=== PATIENT | male | born 1935 | race Caucasian/White ===

== ENCOUNTER 2020-03-02 11:00 | Emergency (ER) | payer OTHER ==
[~2020-03-02] VITALS: Ht 182.9 cm; Wt 92.1 kg
[2020-03-02 11:08] VITALS: Ht 182.9 cm; Wt 92.1 kg
[2020-03-02 13:37] LABS: microscopic required? YES; urine erythrocyte 1+ (NEGATIVE)
[2020-03-02 14:37] VITALS: BP 166/75
== END 2020-03-02 14:37 | disposition home or self-care (01) ==
LOC: ED 11:00
PROVIDERS: Emergency Medicine
DX: N39.0 Urinary tract infection, site not specified (principal); E11.9 Type 2 diabetes mellitus without complications; Z88.0 Allergy status to penicillin
CPT/HCPCS: 76770; 82962; Q0092